=== PATIENT | female | born 1970 | race Hispanic/Latino ===

== ENCOUNTER → 2016-03-16 | Outpatient (CLI) | payer OTHER ==
--- NOTE | 2016-03-16 14:37 | Diagnostic Imaging Report ---
Digital mammogram bilateral screening. This is the patient's baseline study. At this time, there are no current complaints. The current study was also evaluated with a Computer Aided Detection (CAD) system. FINDINGS: The fibroglandular tissue in both breasts is heterogeneously dense. This does limit the sensitivity of this exam. On both the XCC and CC views of the left breast there is a small area of increased density in the lateral most aspect of the breast. There is no corresponding abnormality identified with certainty on the MLO view and I suspect that this finding is more likely due to superimposition of the fibroglandular tissue than to a discrete abnormality; however, as there are no prior studies available for comparison, I would recommend that a compression view of this area be obtained in both the XCC and CC projections for further study. Rolled views in the CC projection and a true lateral view should also be performed. If this density persists on the additional mammographic views, then ultrasound may be necessary as well. There is no primary or secondary sign of malignancy noted otherwise. IMPRESSION: Additional mammographic views of the left breast will be recommended for further study. Ultrasound may also be necessary. ACR BI-RADS Category 0: Incomplete. (Needs additional imaging evaluation). Result letter will be mailed to the patient. Note: At least 10% of breast cancer is not imaged by mammography. Dictated by: Dictated on workstation # [id number]
== END ==
LOC: RAD 10:24
PROVIDERS: ATTEND Nurse Practitioner Family
DX: Z12.31 Encounter for screening mammogram for malignant neoplasm of breast (principal)

== ENCOUNTER → 2016-03-30 | Outpatient (CLI) | payer OTHER ==
--- NOTE | 2016-03-30 10:18 | Diagnostic Imaging Report ---
EXAM: Left breast ultrasound. INDICATION: Asymmetry along the outer aspect of the left breast. FINDINGS: In the 4:00 o'clock zone, centered at 4 cm from the nipple, there is a poorly defined hyperechoic lesion measuring 2.2 x 1.2 x 0.8 cm with associated shadowing. There is no definitive internal vascularity seen. There is, otherwise, no mass or focal lesion seen in the four-quadrants or retroareolar region. IMPRESSION: Poorly defined shadowing lesion at the 4:00 o'clock zone, 4 cm from the nipple, of indeterminate etiology. Ultrasound-guided biopsy is recommended to rule out malignancy. The findings and recommendations were personally discussed with the patient at the time of the exam. ACR BI-RADS Category 4: Suspicious abnormality. Result letter will be mailed to the patient. Note: At least 10% of breast cancer is not imaged by mammography. Report faxed to Roya KUMAR at [phone] at 10:16 a.m. 03/30/2016. Dictated by: Dictated on workstation # [id number]
--- NOTE | 2016-03-30 18:48 | Diagnostic Imaging Report ---
EXAMINATION: Left breast digital diagnostic mammogram with CAD. The current study was also evaluated with a Computer Aided Detection (CAD) system. INDICATION: Asymmetry along the upper aspect of the left wrist. FINDINGS: When evaluated with focal compression view, there is persistent lobulated asymmetry measuring about 9 mm. There is questionable correlating density in the superior aspect of the lateral view which was not confirmed on focal compression view. IMPRESSION: Persistent indeterminate lobulated subcentimeter asymmetry in the outer aspect of the left breast. Ultrasound evaluation pending. ACR BI-RADS Category 0: Incomplete. (Needs additional imaging evaluation). Result letter will be mailed to the patient. Note: At least 10% of breast cancer is not imaged by mammography. Dictated by: Dictated on workstation # [id number]
== END ==
LOC: RAD 08:32
PROVIDERS: ATTEND Nurse Practitioner Family
DX: R92.8 Other abnormal and inconclusive findings on diagnostic imaging of breast (principal); N63 Unspecified lump in breast
CPT/HCPCS: 76641

== ENCOUNTER → 2016-04-19 | Outpatient (CLI) | payer SELFPAY ==
[~2016-04-19] VITALS: Ht 167.6 cm; Wt 79.4 kg
[~2016-04-19] MED LIST: LIDOCAINE 1% INJ 20 ML (XYLOCAINE) VIAL ONE
--- OUTSIDE RECORDS SUMMARY | 2016-04-19 08:01 | XMS REPORT | Continuity of Care Document ---
Author Author [facility] Address Unknown Phone Unavailable Allergies Active Description Code Type Severity Reaction Onset Reported/Identified Relationship to Patient Clinical Status Yes Penicillins Drug Allergy 04/02/2011 Medications Problems Date Dx Coded Attending Type Code Diagnosis Diagnosed By 04/02/2011 SIMA DIAS APRN 034.0 PHARYNGITIS STREPTOCOCCUS, GROUP A: BETA HEMOLYTIC 04/20/2011 SIMA DIAS APRN 564.00 CONSTIPATION 12/28/2011 SIMA DIAS APRN 682.6 SKIN ABSCESS OF THE LEFT THIGH Procedures Code [place] [address] DRAINAGE OF SKIN ABSCESS 12/28/2011 66100 CULTURE WOUND (AEROBIC) 12/28/2011 Results Encounters ACCT No. Visit Date/Time Discharge Status Pt. Type Provider Facility Loc./Unit Complaint [id number] 12/28/2011 09:16:00 12/28/2011 23: 59:59 CLS Outpatient SIMA DIAS APRN
[2016-04-19 08:08] VITALS: BP 140/87
--- NOTE | 2016-04-19 11:06 | Diagnostic Imaging Report ---
INDICATION: Left breast mass INDICATION: Indeterminant area of shadowing seen at 4:00 zone, 4 cm from the nipple, initially planned to be biopsied. FINDINGS: In preparation for a left breast biopsy 4:00 lesion, 4 cm from the nipple was evaluated. The lesion appears less prominent compared to the prior exam. There area of involvement upon light scanning at this time appears to be very thin and is difficult to focus on if the probe was not in a very specific plain. This would make the biopsy difficult and also the interval improvement in the appearance may suggest a benign process. This was discussed with the patient and the patient's given the discussion above, would prefer to followup this lesion without a biopsy at this time. IMPRESSION: Indeterminate hypoechoic area with shadowing at 4:00 position, 4 cm from the nipple appears less prominent compared to the prior exam and is now involving a very thin area which would make it difficult for an accurate biopsy of a lesion involved. The findings are favored to be related to benign process. A followup ultrasound and mammogram of the left breast in 4 months is recommended to reassess. BI-RADS 3. ACR BI-RADS Category 3: Probably benign findings. Dictated by: Dictated on workstation # [id number]
== END ==
LOC: RAD 07:54
PROVIDERS: ATTEND Surgery
DX: N63 Unspecified lump in breast (principal)
CPT/HCPCS: 76642

== ENCOUNTER → 2016-09-19 | Outpatient (CLI) | payer OTHER ==
--- NOTE | 2016-09-19 14:28 | Diagnostic Imaging Report ---
EXAMINATION: Left breast ultrasound. INDICATION: Left breast lateral asymmetry. Followup ultrasound abnormality. FINDINGS: There is a poorly defined area of shadowing seen in the outer aspect of the left breast at the 4 o'clock zone. It is difficult to measure as there is no obvious lesion with the borders and area of shadowing being relatively large. This is larger than the asymmetry seen on mammography. IMPRESSION: Persistent nonspecific shadowing in the right breast at the 4 o'clock zone 4 cm from the nipple. This could match the area of asymmetry seen on mammography; however, it is not matching the size of the abnormality. Further evaluation with breast MRI is recommended. If that cannot be performed, then a reassessment with mammography and ultrasound in 3 months would be recommended. ACR BI-RADS Category 0: Incomplete. (Needs additional imaging evaluation). Result letter will be mailed to the patient. Note: At least 10% of breast cancer is not imaged by mammography. Dictated by: Dictated on workstation # [id number]
--- NOTE | 2016-09-19 15:59 | Diagnostic Imaging Report ---
Left breast diagnostic mammogram with tomography. INDICATION: Follow-up lateral left breast asymmetry. The current study was also evaluated with a Computer Aided Detection (CAD) system. COMPARISON: 03/16/2016. FINDINGS: The lateral left breast asymmetry previously seen is again noted. It is evaluated with rolled CC projection which demonstrates with the tomographic views as well suggestion of summation artifact of parenchyma with no definitive underlying mass. The asymmetry persists however. No change is seen otherwise in the left breast. IMPRESSION: Persistent asymmetry along the lateral aspect of the left breast, which remains indeterminate. Ultrasound evaluation pending. ACR BI-RADS Category 0: Incomplete. (Needs additional imaging evaluation). Result letter will be mailed to the patient. Note: At least 10% of breast cancer is not imaged by mammography. Dictated by: Dictated on workstation # [id number]
== END ==
LOC: RAD 12:59
PROVIDERS: ATTEND Nurse Practitioner Family
DX: N64.89 Other specified disorders of breast (principal)
CPT/HCPCS: 76642